=== PATIENT | male | born 1950 | race Caucasian/White ===

== ENCOUNTER 2025-05-29 11:05 | Emergency (ER) | payer MEDICARE, SELFPAY ==
--- OUTSIDE RECORDS SUMMARY | 2008-02-22 07:11 | XMS_ITS | Continuity of Care Document ---
Author Organization [facility] Address [address] [place] [address] [facility] [address] [place] [address] Phone Care Team Providers Care Human Service Specialist Name Role Phone Jaswant Alvarez Unavailable Unavailable Procedures Procedure Date Office/outpatient Visit, [facility] Advance Directives Directive Yes / No Effective Date File Name No Information Encounters Encounter Description Practice Location Reason(s) For Visit Diagnoses Date Provider Providers Copied on Encounter Office/outpat ient Visit, [facility], [address] [place] [address] [address], [place], [place], [id number], tel:[phone] [facility] No Information [phone] Kim Jaswant. [address] [employer] [facility] [address], [address], [place]. tel:[phone] Family History Family Member Type Diagnosis Age At Onset No Information Payers Payer name Insurance type Covered republican ID Authoriza tion(s) [facility] Custom Care CI [id number] Social History Type Description Quantity Date Captured Comments Sex Male Smoking Status No Information Chief Complaint And Reason For Visit No Information Reason For Referral Reason For Referral No Information History Of Present Illness Encounter Date Complaint History Of Prese nt Illness No Information Functional Status Date Functional Assessmen t No Information Instructions Date Instruction Additional Infor mation No Information Assessments Type Assessment Date No Information Patient Care Teams Name Effective Dates (start - stop) Status Members No Information
[2025-05-29 11:11] VITALS: BP 131/64; PULSE 79; RESP 20; TEMP 36.4; O2SAT 96
--- OUTSIDE RECORDS SUMMARY | 2025-05-29 11:41 | XMS_ITS | Encounter Summary ---
Author Organization [facility] [employer] [facility] Address [address] [place] [address] Phone Care Team Providers Care Operations Research Analyst Name Role Phone No, Physician Primary Care Provider [phone] Art Solomon MD Primary Care Provider OklahomaSapna MD PhD Unavailable [phone] Encounter Details Date Type Department Care Team (Late st Contact Info) Description 01/02/[address] 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 Gender Identity Not on file Sexual Orientation Not on file documented as of this encounter Plan of Treatment Not on file documented as of this encounter Visit Diagnoses Not on filedocumented in this encounter Eye Exam Visual Acuity Right eye Left eye Near sc 20/20-1 20/25-1 Tonometry (Tonopen, 6:22 PM) Right eye Left eye Pressure 10 11 Pupils Dark Light Shape React APD Right eye 5 3 Round Brisk None Left eye 4 2.5 Round Brisk None Visual Sanabria Right eye Left eye Full Full Extraocular Movement Right eye Left eye Abnormal Up gaze -- -- -0.5 -0.5 -- -- Right/left gaze -- -- -- -- -- -- Down gaze -- -- -- -- -- -- Dilation Both eyes: 1.0% Mydriacyl, 2 .5% Phenylephrine @ 6:22 PM External Exam Right eye Left eye External Normal Normal Slit Lamp Exam Right eye Left eye Lids/Lashes ptotic Normal Conjunctiva/Sclera White and quiet White and chhaya et Cornea Clear Clear Anterior Chamber Deep and quiet Deep and quiet Iris Round and reactive Round and juan ctive Lens NS NS Vitreous Normal Normal Fundus Exam Right eye Left eye Disc Normal, no edema Normal, no brenda a C/D Ratio 0.4 0.4 Macula Normal Normal Vessels Normal Normal Periphery Normal Normal Care Teams Operations Research Analyst Relationship Specialty Start Date End Date No, Physician PCP - General 08/02/18 01/15/20 Art Solomon MD PCP - General Internal Medicine 01/16/20 Sapna Wilkes MD PhD [address] [place] [address] Referring Physician Ophthalmology 04/15/20 09/29/20 documented as of this encounter
--- OUTSIDE RECORDS SUMMARY | 2025-05-29 11:41 | XMS_ITS | Clinical Summary ---
Author Organization [facility] Address [address] [facility] [place] [address] Care Team Providers Care Servomechanism Designer Name Role Phone Art Solomon MD Primary Care Provider [phone] Art Solomon MD Unavailable [phone] Source Comments [facility],non-[facility] Affiliates and Associated Physician Practices is amultiple site organization consisting of ambulatory clinics and hospital sitesin [place], [place], [place] and [place]. This disclosure is being madepursuant to the Care Everywhere program and may not contain all information available regarding this patient. Last updated 18.[facility] Allergies Active Allergy Reactions Criticality Noted Date Comments Clindamycin Rash Medium 03/21/2020 Rash from knees to neck Polyethylene Glycol High 05/16/2014 Loss of consciousness, vomiting, sweating, confusion. Penicillins 02/19/2009 Medications * Be aware that medications may not be up to date on this document. Alwaysverify current medications with the patient. magnesium gluconate 500 (27 Mg) MG tablet Take 1 (one) tablet by mouth once daily Active ciprofloxacin (Cipro) 500 MG tablet Take 1 (one) tablet by mouth 2 times daily 14 tablet 5 Active FLUoxetine (PROzac) 20 MG capsuleIndicati ons:Current moderate episode of major depressive disorder without prior episode (HCC) TAKE 1 CAPSULE BY MOUTH EVERY DAY FOR DEPRESSION 100 capsule 1 5 Active Active Problems Problem Noted Date Diagnosed Date Sun-damaged skin 01/03/2025 DNR (do not resuscitate) discussion 12/22/2023 Overview (12/22/2023): Full Code. If he were unable to make medical decisions, then his , Whitney Perez, would do so for him. Hyperglycemia 06/17/2022 Current moderate episode of major depressive disorder without prior episode 04/21/2022 Overview (04/21/2022): Art Solomon MD 09/25/2020 History of nonmelanoma skin cancer 02/06/2022 Hypercholesterolemia 05/15/2013 Resolved Problems Problem Noted Date Diagnosed Date Resolved Date History of COVID-19 06/17/2022 12/16/19 23 Overview (06/17/2022): Late March,. Took Paxlovid. 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 Right functional endoscopic sinus surgery. 2. Antrostomy, anterior and posterior ethmoidectomy. 3. Use of Fusion navigation system. 4. Right Khanna-Reece approach and partial maxillectomy. Pulsatile tinnitus of right ear 08/01/2018 06/27/2024 Overview (07/03/2019): Examination of bilateral TMs has been normal at past visits. I have offered him referral to ENT physician for further work-up which he declines. Major depressive disorder wi th single episode, in full remission 03/10/2018 06/16/2023 Liver lesion, left lobe 08/14/201505/30 History of prostate cancer 07/03/2015 1 Overview (12/09/2021): In about 2009. No longer sees specialist for this. Treated with prostatectomy. Screening for condition 02/19/200911/2014 Overview (05/30/2015): Adult Abstraction Problem List Screening Colonoscopy: Result: Not avail in chart Date: Not avail in chart Flexible Sigmoidoscopy Result: Not avail in chart Date: Not avail in chart Occult Blood (Stool Cards): Result: Not avail in chart Date: Not avail in chart PSA: Result: Not avail in chart Date: 2006 Essential hypertension 02/19/200912/15 Overview (05/30/2015): Controlled Allergic rhinitis 02/19/2009 07/03/2015 Pelvic and perineal pain 02/19/200911/2014 Immunizations Immunization Administration Dates Next Due INFLUENZA VACCINE 06/08/2019,07/05/2018 INFLUENZA VACCINE, ADJUVANTE D, QUADR. (FLUAD QUADRIVALENT; 65Y+) (AIIV4) 06/16/2022,06/10/2021 INFLUENZA VACCINE, HIGH-DOSE , QUADR. (FLUZONE HIGH-DOSE QUADRIVALENT; 65Y+), 0.7 ML (HD-IIV4) 05/09/2020 INFLUENZA VACCINE, QUADR. (F LUZONE; FLULAVAL; FLUARIX; AFLURIA QUADRIVALENT; 6MO+), 0.5 ML (IIV4) 06/08/2019 PNEUMOCOCCAL PPSV23 07/03/2019 Pneumococcal Pcv13 Conj 07/28/2018 Zoster Hzv Vacc Recombinant Inj Im 07/30/2020, Family History Medical History Relation Name Comments Hypertension Father Cancer Mother Relation Name Status Comments Father Mother Sister 1 Alive Sister 2 Alive Social History Tobacco Use Types Packs/Day Years Used Date Smoking Tobacco: Former Cigarettes 1 18 0 09/01/1964 - 09/01/1982 Smokeless Tobacco: Never Tobacco Cessation:Counseling Given: No Alcohol Use Standard Drinks/Week Comments Not Currently 0 (1 standard drink = 0.6 oz pur e alcohol) PHQ-2 Answer Date Recorded Patient Health Questionnaire-2 Score 0 06/27/2024 Sex and Gender Information Value Date Recorded Sex Assigned at Not on file Legal Sex Male 6:46 AM ACID TREATER Gender Identity Not on file Sexual Orientation Not on file Occupation Industry Job Start Date Job End Date retired Not on file Not on file Not on file Last Filed Vital Signs Vital Sign Reading Time Taken Comments Blood Pressure 130/72 01/03/2025 12:07 PM CDT Pulse 58 01/03/2025 12:07 PM CDT Temperature 36.2 C (97.2 F) 01/03/2025 12:07 PM CDT Respiratory Rate 18 01/03/2025 12:07 PM CDT Oxygen Saturation 97% 01/03/2025 12:07 PM CDT Inhaled Oxygen Concentration - - Weight 83.9 kg (185 lb) 01/03/2025 12:07 PM CDT Height 182.9 cm (6') 01/03/2025 12:07 PM CDT Body Mass Index 25.09 01/03/2025 12:07 PM CDT Plan of Treatment Upcoming Encounters Date Type Department Care Team (Late st Contact Info) Description 07/17/2025 1:30 PM ACID TREATER Office Visit [facility] - Internal Medicine [address] [facility] [address] [place] [phone] Art Solomon MD [address] [place] [phone] 02/05/2026 1:00 PM CDT Office Visit [facility] - Dermatology [address] [place] [address], [facility] [place] [phone] Douglas Kaye MD [address] [place] [address] [place] [address] Health Maintenance Due Date Last Done Comments COLOGUARD (AGES 45-75) - COLON CA SCREENING 1950 CT COLONOGRAPHY - COLON CA SCREENING 1950 FLEX SIG - COLON CA SCREENING 1950 DTAP/TDAP/TD VACCINES (1 - Tdap) 1969 COLON MONITORING 07/30/2019 07/30/2014, 08/2013, 07/30/2014 COLONOSCOPY - COLON CA SCREENING 07/30/2024 07/30/2014, 07/30/2014, 07/30/2014 DEPRESSION SCREENING 08/30/2024 12/22/2023, 06/16/2023, 12/15/2022, Additional history exists Colorectal Cancer Screening 01/16/2025 COVID-19 VACCINE ( - season) 2025 INFLUENZA VACCINE (#1) 2025 , 06/10/2021, 05/09/2020, Additional history exists Respiratory Syncytial Virus (RSV) Vaccine Pt: or over 60 yrs (1 - 1-dose 75+ series) 2025 FIT - COLON CA SCREENING 01/15/2026 025, 01/03/2024, 12/22/2022 SCREENING FOR DIABETES 11/09/2027 , 11/08/2024, 06/28/2024, Additional history exists LIPID TESTING 11/08/2029 11/08/2024, 10/29, 06/11/2023, Additional history exists HEPATITIS C SCREENING Completed 06/15/2014 AAA SCREENING Addressed 07/08/2015 (Prev iously completed), 07/08/2015 Overridden with the intention of not completing the topic PNEUMOCOCCAL VACCINE 50+ Completed 07/03/2019, 07/01 ZOSTER VACCINE Completed 07/30/2020, 03/22/2020 MEDICARE AWV CALENDAR YEAR Completed 01/03/2025, 12/22/2023, 09/04/2022, Additional history exists HEPATITIS B VACCINE Aged Out No longe r eligible based on patient's age to complete this topic HIB VACCINE Aged Out No longer eligi ble based on patient's age to complete this topic HPV VACCINE Aged Out No longer eligi ble based on patient's age to complete this topic MENINGOCOCCAL (Group B) VACCINE SHARED DECISION-MAKING Aged Out No longer eligible based on patient's age to complete this topic MENINGOCOCCAL GROUPS A/C/Y/W VACCINE Aged Out No longer eligible based on patient's age to complete this topic Goals Goal Patient Goal Type Associated Problems Recent Progress Patient-Stated? Author Blood Pressure < 140/90 Blood Pressure 130/72( 025 12:07 PM CDT) No Irma Jacques MA Procedures Procedure Name Priority Date/Time Associated Diagnosis Comments OCCULT BLOOD FECES FIT SCREEN Routine 01/15/2025 10:50 AM CDT Screening for colon cancer HEMOGLOBIN A1C Routine 11/08/2024 11:00 AM CDT Hyperglycemia LIPID PROFILE Routine 11/08/2024 11:00 AM CDT Hypercholesterolemi a US SCREEN AORTA FOR ANEURYSM Routine 07/08/2015 Screening for AAA (abdominal aortic aneurysm) ENDOSCOPY, COLON, SCREENING Routine 07/30/2014 8:08 AM ACID TREATER HEPATITIS C ANTIBODY Routine 06/15/2014 7:52 AM CDT Need for hepatitis C screening test from Last 3 Months or Most Recently Relevant to Health Maintenance Results * OCCULT BLOOD FECES FIT SCREEN (01/15/2025 10:50 AM CDT) Pathologist [facility] Occult Blood FIT Negative Negative 01/17/2025 9:34 PM CDT [facility] Stool STOOL SPECIMEN / Unknown Collection / Unknown 01/15/2025 10:50 AM CDT 01/17/2025 10:50 AM CDT us Art Solomon MD LAB - BODY FLUID ORDERABLES Fin al Result [facility] [address] [place] [address] * (ABNORMAL) HEMOGLOBIN A1C (11/08/2024 11:00 AM CDT) Hemoglobin A1c 6.1(H) 4.8 - 5.6 % [facility] INSURANCE BILL Comment: Prediabetes: 5.7 - 6.4 Diabetes: >6.4 Glycemic control for adults with diabetes: <7.0 Blood BLOOD SPECIMEN / Unknown 11/08/2024 11:00 AM CDT 11/08/2024 Narrative [facility] INSURANCE BILL - 11/09/2024 12:07 AM CDT Performed at: [address] [place] [id number] Guest Experience Representative: Raul Rosas PhD, Phone: [phone] Art Solomon MD LAB - CHEMISTRY ORDERABLES Lluvai l Result Performing Organization Address [facility]/ZIP Co de Phone Number [facility] INSURANCE BILL [address] [place] [address] * (ABNORMAL) LIPID PROFILE (11/08/2024 11:00 AM CDT) Cholesterol 220(H) 100 - 199 mg/dL [facility] INSURANCE BILL Triglycerides 111 0 - 149 mg/dL [facility] INSURANCE BILL HDL Cholesterol 53 >39 mg/dL [facility] INSURANCE BILL VLDL Calculated 20 5 - 40 mg/dL [facility] INSURANCE BILL LDL Calculated 147(H) 0 - 99 mg/dL [facility] INSURANCE BILL Blood BLOOD SPECIMEN / Unknown 11/08/2024 11:00 AM CDT 11/08/2024 Narrative [facility] INSURANCE BILL - 11/09/2024 6:09 AM CDT Performed at: [address] [place] [id number] Guest Experience Representative: Raul Rosas PhD, Phone: [phone] Art Solomon MD LAB - CHEMISTRY ORDERABLES Lluvia l Result Performing Organization Address [facility]/ZIP Co de Phone Number [facility] INSURANCE BILL [address] [place] [address] * US SCREEN AORTA FOR ANEURYSM (07/08/2015) Anatomical Region Laterality Modality Other Art Solomon MD US ORDERABLES Final Result * ENDOSCOPY, COLON, SCREENING (07/30/2014 8:08 AM ACID TREATER) Report Endoscopy POC _ Patient Name: Alice Perez Procedure Date: 07/30/2014 8:08 AM Date of : 1950 Admit Type: Outpatient Age: 64 Gender: Male Attending MD: Owen Fowler MD _ Procedure: Colonoscopy Indications: Screening for colorectal malignant neoplasm Providers: Owen Fowler MD (Doctor), Jelena Mcconnell RN, Sapna Nascimento, Barber Tool Sharpener Referring MD: Art Solomon MD (Referring MD) Medicines: Monitored Anesthesia Care Complications: No immediate complications. _ Procedure: Pre-Anesthesia Assessment: - ASA Grade Assessment: II - A patient with mild systemic disease. - Airway Examination: Mallampati Class I (tonsillar pillars visualized). After I obtained informed consent, the scope was passed under direct vision. Throughout the procedure, the patient's blood pressure, pulse, and oxygen saturations were monitored continuously. The Colonoscope was introduced through the anus and advanced to the cecum, identified by appendiceal orifice and ileocecal valve. The colonoscopy was performed without difficulty. The patient tolerated the procedure well. The quality of the bowel preparation was good. Impression: - One 5 mm polyp in the sigmoid colon. Resected and retrieved. - Diverticulosis. Findings: A sessile polyp was found in the sigmoid colon. The polyp was 5 mm in size. The polyp was removed with a cold biopsy forceps. Resection and retrieval were complete. Estimated blood loss: none. Diverticula were found in the colon. _ Recommendation: - Repeat colonoscopy in 5-10 years for surveillance based on pathology results. Procedure Code(s): --- Professional --- 93273, Colonoscopy, flexible, proximal to splenic flexure; with biopsy, single or multiple --- Technical --- 88663, Colonoscopy, flexible, proximal to splenic flexure; with biopsy, single or multiple Diagnosis Code(s): --- Professional --- V76.51, Special screening for malignant neoplasms of colon 211.3, Benign neoplasm of colon 562.10, Diverticulosis of colon (without mention of hemorrhage) --- Technical --- V76.51, Special screening for malignant neoplasms of colon 211.3, Benign neoplasm of colon 562.10, Diverticulosis of colon (without mention of hemorrhage) CPT copyright 2013 [employer]. All rights reserved. The codes documented in this report are preliminary and upon printing film stripper review may be revised to meet current compliance requirements. Owen Fowler MD 07/30/2014 8:29 AM This report has been signed electronically. Number of Addenda: 0 Note Initiated On: 07/30/2014 8:08 AM [facility] 07/30/2014 8:08 AM ACID TREATER us Owen Fowler MD GI PROCEDURE ORDERABLES Edited R esult - Final [facility] * HEPATITIS C ANTIBODY (06/15/2014 7:52 AM CDT) Hepatitis C Antibody <0.1 0.0 - 0.9 s/co ratio [facility] ACCOUNT BILL Comment: Negative: < 0.8 Indeterminate: 0.8 - 0.9 Positive: > 0.9 . In order to reduce the incidence of a false positive result, the CDC recommends that all s/co ratios between 1.0 and 10.9 be confirmed by a more specific supplemental or PCR testing. [facility] offers [facility] Ab w/Reflex to Verification test #[id number]. Blood specimen (specimen) BLOOD SPECIMEN / Unknown 06/15/2014 7:52 AM CDT 06/15/2014 2:44 PM CDT Narrative Resulting Agency Comment [facility] [address] [facility] [phone] us Art Solomon MD LAB - CHEMISTRY ORDERABLES Lluvia l Result Performing Organization Address City/State/[facility] Co de Phone Number [facility] ACCOUNT BILL [address] [place] [address] from Last 3 Months or Most Recently Relevant to Health Maintenance Insurance UHC MANAGED MEDICARE ADV MEDICARE [facility] Advance Directives Documents on File Type Date Recorded Patient Speech Correction Assistant Expl anation Adv Directive/Living Will/POA Adv Directive/Living Will/POA Care Teams Servomechanism Designer Relationship Specialty Start Date End Date Art Solomon MD PCP - General Internal Medicine 05/18/14 Art Solomon MD [address] [address] PCP - Attributed-[facility] JOSEE STRama P4P 02/28/24
--- OUTSIDE RECORDS SUMMARY | 2025-05-29 11:41 | XMS_ITS | Clinical Summary ---
Author Organization [facility] Address [address] [place] [address] Care Team Providers Care Estate Planning Counselor Name Role Phone Art Solomon MD Primary Care Provider [phone] Allergies Active Allergy Reactions Criticality Noted Date Comments Clindamycin Rash Medium 03/21/2020 Rash from knees to neck Penicillins Rash Medium As child Polyethylene Glycol Sweating High 05/16/2014 Loss of consciousness, vomiting, sweating, confusion. Medications FLUoxetine (PROzac) 20 mg capsuleIndicati ons:depression Take 1 capsule (20 mg total) by mouth daily with breakfast 8 Active lisinopriL (PRINIVIL,ZESTR IL) 10 mg tabletIndicatio ns:hypertension Take 10 mg by mouth daily with breakfast Active magnesium oxide 400 mg magnesium capsule Take 1 tablet by mouth once Active Active Problems Problem Noted Date Diagnosed Date Esotropia 01/09/2025 Assessment & Plan (01/09/2025 2:34 PM CDT): Chronic, stable Patient doing excellent with fresnel prism trialed with Dr. Magallon SRx released with prism today Age-related nuclear cataract of both eyes 2024 Assessment & Plan (01/09/2025 2:34 PM CDT): Tr NS OU ADL being met / NVS, monitor. 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 Right functional endoscopic sinus surgery. 2. Antrostomy, anterior and posterior ethmoidectomy. 3. Use of Fusion navigation system. 4. Right Khanna-Reece approach and partial maxillectomy. Bilateral sensorineural hearing loss 09/01/2018 Pulsatile tinnitus of right ear 08/01/2018 Current moderate episode of major depressive disorder without prior episode 03/10/2018 Liver lesion, left lobe 08/14/2015 History of prostate cancer 07/03/2015 Hypercholesteremia 05/15/2013 Essential hypertension 02/19/2009 Overview (09/01/2018): Overview: Controlled Surgical History Surgery Date Site/Laterality Comments PROSTATE SURGERY CHOLECYSTECTOMY KNEE ARTHROSCOPY Right Medical History Medical History Date Comments HL (hearing loss) Tinnitus Exposure to noise Hypertension Cancer (HCC) Depression Hypertension 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 Monthly or less 10/16/2024 Average Number of Drinks Not on file 025 Frequency of Binge Drinking Not on file 09/30 Sex and Gender Information Value Date Recorded Sex Assigned at Not on file Legal Sex Male 10:49 AM DISTRICT OR DISTRICT OFFICE DIRECTOR Gender Identity Not on file Sexual Orientation Not on file Obstetrics History Last Filed Vital Signs Vital Sign Reading Time Taken Comments Blood Pressure 161/91 01/26/2020 4:40 PM CDT Pulse 73 01/26/2020 4:40 PM CDT Temperature 36 C (96.8 F) 01/26/2020 2:26 PM CDT Respiratory Rate 12 01/26/2020 4:40 PM CDT Oxygen Saturation 98% 01/26/2020 4:40 PM CDT Inhaled Oxygen Concentration - - Weight 86.6 kg (191 lb) 11/01/2024 3:39 PM DISTRICT OR DISTRICT OFFICE DIRECTOR Height 182.9 cm (6') 11/01/2024 3:39 PM DISTRICT OR DISTRICT OFFICE DIRECTOR Body Mass Index 25.9 11/01/2024 3:39 PM DISTRICT OR DISTRICT OFFICE DIRECTOR Plan of Treatment Health Maintenance Due Date Last Done Comments Colon Cancer Screening-Colonoscopy 1950 Depression Screening 1950 Hepatitis C Screening 1950 DTaP/Tdap/Td Vaccine (1 - Tdap) 1961 Hepatitis B Screening 1968 Well Visit 65+ 2015 Fall Risk Assessment 01/25/2021 01/26/2020 Influenza Vaccine (#1) 2025 0, 06/08/2019, 06/08/2019, Additional history exists Abdominal Aortic Aneurysm (A AA) Screen Completed 07/08/2015 Pneumococcal vaccine 65+ Completed 07/03/2019, 07/01 Zoster Vaccine Completed 07/30/2020, 03/22/2020 Insurance UHC MEDICARE ADVANTAGE MEDICARE [facility] MEDICARE ADVANTAGE Care Teams Estate Planning Counselor Relationship Specialty Start Date End Date Art Solomon MD PCP - General Internal Medicine 01/16/20
--- NOTE | 2025-05-29 12:10 | ED_ITS ---
HPI - Animal Bite General Chief Complaint: Animal Bite Stated Complaint: cat bite, poss infection Time Seen by Provider: 05/29/25 11:36 History of Present Illness HPI narrative: Patient is a 74-year-old male presents to the ER after sustaining a cat bite to his right hand. He reports he believes he sustained a cat bite on Wednesday, 2 days ago. Patient reports this morning he woke up and the site was warm to touch. He also endorses a pink streak down his R inner arm. Patient is unsure when he last had his tetanus vaccine. He endorses a history of depression and allergies have polyethylene glycol. Patient denies any decreased range of motion, recent fevers, or purulent drainage from the site. Related Data Allergies Allergy/AdvReac Type Severity Reaction Status Date / Time polyethylene glycol Allergy Severe Loss of Verified 05/29/25 11:18 Consciousness Penicillins Allergy Intermediate Hives Verified 05/29/25 11:18 Review of Systems Review of Systems: All systems reviewed & are unremarkable except as noted in HPI and below PMFSH Social History Social History Smoking status: Never smoker Alcohol intake: current Exam Narrative: GENERAL: Well appearing, well-nourished, non-toxic, in no acute distress. HEAD: Normocephalic, atraumatic. NECK: Supple. No adenopathy, no masses. RESPIRATORY: Airway patent, respirations nonlabored. Clear to auscultation bilaterally, no rales, rhonchi, wheezing. CARDIOVASCULAR: Regular rate and rhythm without murmurs, rubs, or gallops. Peripheral pulses 2+ and equal bilaterally. ABDOMINAL: Soft, nontender, nondistended, no hepatosplenomegaly. Normoactive BS. MUSCULOSKELETAL: Moves all extremities. Strength/ROM intact without gross deformities. SKIN: Warm, dry, normal color. + redness and swelling to R dorsal wrist, no puncture sites with no visible drainage, pink streak from medial wrist traveling [address] pt's forearm. NEURO: A&O X3. Speech clear. Cranial nerves II-XII intact. No ataxic movements. PSYCHIATRIC: Appropriate mood and affect. Normal interaction. Course Vital Signs Vital signs: Vital Signs Temperature 36.4 C 05/29/25 11:11 Pulse Rate 79 05/29/25 11:11 Respiratory Rate 20 05/29/25 11:11 Blood Pressure 131/64 05/29/25 11:11 Pulse Oximetry 96 05/29/25 11:11 Oxygen Delivery Room Air 05/29/25 11:11 Temperature 36.4 C 05/29/25 11:11 Pulse Rate 79 05/29/25 11:11 Respiratory Rate 20 05/29/25 11:11 Blood Pressure 131/64 05/29/25 11:11 Pulse Oximetry 96 05/29/25 11:11 Oxygen Delivery Room Air 05/29/25 11:11 MDM - Animal Bite MDM Narrative Medical decision making narrative: Patient is a 74-year-old male presents to the ER after sustaining a cat bite to his right hand. He reports he believes he sustained a cat bite on Wednesday, 2 days ago. Patient reports this morning he woke up and the site was warm to touch. He also endorses a pink streak down his R inner arm. Patient is unsure when he last had his tetanus vaccine. He endorses a history of depression and allergies have polyethylene glycol. Patient denies any decreased range of motion, recent fevers, or purulent drainage from the site. Medications Ordered: Tetanus IM, Bactrim p.o. (patient has allergies to other antibiotics) Diagnosis: cellulitis Patient Education/Shared MDM: Results of examination shared with patient. He will be given a dose of oral antibiotics and his tetanus vaccine here in the ER. Patient strongly advised to maintain hydration status upon discharge and follow-up with his PCP in 2-3 days to ensure he is healing. He will be discharged home with a prescription for Bactrim. Strict return precautions provided. Patient verbalized understanding and is in agreement with plan. Vital signs stable at time of discharge. All questions answered. Differential Diagnosis Differential diagnosis: Likely bite by animal, cat bite and dog bite Discharge Plan Discharge Clinical Impression: Cat bite, Bite by animal Patient Disposition: Home Condition: Stable Instructions: Antibiotic Form, Animal Bite (ED) Additional Instructions: Please return to the ER with any worsening symptoms. Follow-up with primary care provider in 2-3 days to ensure you are healing. Take all medications as prescribed, including regularly scheduled medications. Complete your full dose of antibiotics. Patient Language: Hebrew Prescriptions: New sulfamethoxazole-trimethoprim [Bactrim DS] 800-160 mg tablet 1 tablet PO Q12H 10 Days Qty: 20 0RF Follow-up/Referrals: PHYSICIAN NOT ON STAFF,NONSTAFF [Primary Care Provider] Time of Disposition: 12:18
[2025-05-29] MEDS: SULFAMETHOXAZOLE/TRIMETHOPRIM 800/160 MG DS TABLET 2 TAB PO (12:33)
[2025-05-29] MEDS: TETANUS,DIPHTHERIA,AC PERTUSSIS ADULT (0.5 ML) BOOSTRIX IM (12:35)
== END 2025-05-29 12:42 | disposition home or self-care (01) ==
PROVIDERS: Emergency Provider Registered Nurse
DX: S61.451A Open bite of right hand, initial encounter (principal); Z23 Encounter for immunization; W55.01XA Bitten by cat, initial encounter
CPT/HCPCS: 90471; 90715; 99283; A9270